=== PATIENT | male | born 1995 | race Caucasian/White ===

== ENCOUNTER 2021-08-24 14:06 | Emergency (ER) | payer MEDICAID ==
[~2021-08-24] VITALS: Ht 167.6 cm; Wt 75.0 kg
[2021-08-24] MEDS ORDERED: KETOROLAC TROMETHAMINE 30 MG/ML VIAL IVP ONE (15:15)
[2021-08-24] MEDS ORDERED: LIDOCAINE 5% TRANSDERMAL PATCH TD ONE (15:15)
[2021-08-24] MEDS ORDERED: KETOROLAC TROMETHAMINE 30 MG/ML VIAL IM ONE (15:15)
[2021-08-24] MEDS ORDERED: IBUP-2070 PO (15:45)
[2021-08-24] MEDS ORDERED: BACL10TA PO (15:46)
[2021-08-24 16:01] VITALS: BP 128/65
== END 2021-08-24 16:04 | disposition home or self-care (01) ==
LOC: EMS 14:06
DX: M54.2 Cervicalgia (principal); M25.511 Pain in right shoulder; R07.81 Pleurodynia; V89.2XXA Person injured in unspecified motor-vehicle accident, traffic, initial encounter; Y93.89 Activity, other specified; Y92.488 Other paved roadways as the place of occurrence of the external cause; Y99.8 Other external cause status
CPT/HCPCS: 96372; 99283; J1885

== ENCOUNTER 2024-10-30 20:08 | Emergency (ER) | payer MEDICAID ==
[~2024-10-30] VITALS: Ht 167.6 cm; Wt 77.3 kg
[~2024-10-30 20:08] MED LIST: BACL10TA PO; IBUP-1492 PO
[2024-10-30] MEDS: PROPARACAINE HCL 0.5% 15 ML OPHTHALMIC SOLUTION OU ONE (20:45)
[2024-10-30] MEDS: FLUORESCEIN SODIUM 1 MG STRIP OU ONE (20:46)
[2024-10-30] MEDS ORDERED: ERYT3.5O8 OD (21:24)
[2024-10-30 21:36] VITALS: BP 124/83; PULSE 73; RESP 14; TEMP 97.3; O2SAT 100
== END 2024-10-30 22:16 | disposition home or self-care (01) ==
LOC: EMS 20:08
DX: H00.14 Chalazion left upper eyelid (principal); Z79.899 Other long term (current) drug therapy
CPT/HCPCS: 99283